=== PATIENT | female | born 1995 | race Caucasian/White ===

== ENCOUNTER 2017-06-17 02:29 | Emergency (ER) | payer OTHER ==
[2017-06-17] MEDS: ONDANSETRON 4 MG INJ IV (03:03)
[2017-06-17] MEDS: SOD CHLORIDE 0.9% 1,000 ML IV (04:23)
[2017-06-17 04:39] LABS: CANNABINOIDS Positive (NEGATIVE)
[2017-06-17 04:42] LABS: AMPHETAMINE/METHAMPHETAMINE Negative (NEGATIVE); BARBITURATES Negative (NEGATIVE); BENZODIAZEPINES Negative (NEGATIVE); COCAINE Negative (NEGATIVE); OPIATES Negative (NEGATIVE)
[2017-06-17 04:44] LABS: URINE PH (Dip) POC 5.5 (5.0-8.5)
[2017-06-17 04:44] LABS: URINE BLOOD (Dip) POC 1+ (NEGATIVE); URINE GLUCOSE (Dip) POC Negative (NEGATIVE); URINE KETONES (Dip) POC Trace (NEGATIVE); URINE LEUKOCYTE EST (Dip) POC Negative (NEGATIVE); URINE NITRITE (Dip) POC Negative (NEGATIVE); URINE TOTAL PROTEIN POC Trace (NEGATIVE)
== END 2017-06-17 05:52 | disposition home or self-care (01) ==
LOC: E/R 02:29
DX: F41.9 Anxiety disorder, unspecified (principal); F12.10 Cannabis abuse, uncomplicated; R00.0 Tachycardia, unspecified
CPT/HCPCS: 80307; 81003; 81025; 93005; 96374; 99284-25